=== PATIENT | female | born 1935 | race Caucasian/White ===

== ENCOUNTER → 2017-09-07 | Outpatient (CLI) | payer OTHER | END | disposition home or self-care (01) | LOC: KCIC CT 08:31 | DX: K57.30 Diverticulosis of large intestine without perforation or abscess without bleeding (principal); K44.9 Diaphragmatic hernia without obstruction or gangrene; M51.36 Other intervertebral disc degeneration, lumbar region; M47.896 Other spondylosis, lumbar region; R91.8 Other nonspecific abnormal finding of lung field | CPT/HCPCS: 74176 ==

== ENCOUNTER → 2017-10-17 | Outpatient (CLI) | payer OTHER ==
[2017-10-17] MEDS: IOHEXOL 300 MG/ML 100ML VIAL. IV (09:07)
[2017-10-17 10:05] LABS: ISTAT CREATININE 0.9 mg/dL (0.6-1.1)
== END | disposition home or self-care (01) ==
LOC: KCIC CT 08:13
DX: I25.10 Atherosclerotic heart disease of native coronary artery without angina pectoris (principal); K57.90 Diverticulosis of intestine, part unspecified, without perforation or abscess without bleeding; M47.894 Other spondylosis, thoracic region; I77.810 Thoracic aortic ectasia; I10 Essential (primary) hypertension
CPT/HCPCS: 71270; 82565; Q9967